=== PATIENT | male | born 1990 | race Caucasian/White ===

== ENCOUNTER 2017-11-28 13:42 | Emergency (ER) | payer SELFPAY ==
[2017-11-28 13:47] VITALS: BP 132/76
--- NOTE | 2017-11-28 14:43 | ER Document Report ---
ED General - General Chief Complaint: Chest Pain Stated Complaint: CHEST PAIN, LEFT ARM PAIN Time Seen by Provider: 11/28/17 14:25 Mode of Arrival: Ambulatory Information source: Patient Notes: 27-year-old male presents with 2 separate complaints. Patient notes for the past 10 days he has been having epigastric midsternal cramping burning sensation. Patient admits to history of gastric reflux, notes he eats Tums often, patient also admits to pain in the left shoulder with range of motion. Patient denies any family history of any cardiac concerns notes he was concerned about his heart to the 2 symptoms, patient notes that he is active and does not have chest pain when he is active TRAVEL OUTSIDE OF THE [place] IN LAST 30 DAYS: No - HPI Onset: Last week Onset/Duration: Intermittent Quality of pain: Burning, Cramping Severity: Mild Pain Level: 1 Associated symptoms: Body/muscle aches, Other Exacerbated by: Movement Relieved by: Denies Similar symptoms previously: No Recently seen / treated by doctor: No Past Medical History - Social History Smoking Status: Former Smoker Cigarette use (# per day): No Chew tobacco use (# tins/day): No Smoking Education Provided: No Frequency of alcohol use: Occasional Drug Abuse: Marijuana Family History: Reviewed & Not Pertinent Patient has suicidal ideation: No Patient has homicidal ideation: No Pulmonary Medical History: Reports: Hx Asthma Renal/ Medical History: Denies: Hx Peritoneal Dialysis Review of Systems - Review of Systems Notes: REVIEW OF SYSTEMS: CONSTITUTIONAL : Denies fever, chills, or sweats. Denies recent illness. EENT: Denies eye, ear, throat, or mouth pain or symptoms. Denies nasal or sinus congestion or discharge. Denies throat, tongue, or mouth swelling or difficulty swallowing. CARDIOVASCULAR: Denies chest pain. Denies palpitations or racing or irregular heart beat. Denies ankle edema. RESPIRATORY: Denies cough, cold, or chest congestion. Denies shortness of breath, difficulty breathing, or wheezing. GASTROINTESTINAL: admits to gastric reflux GENITOURINARY: Denies difficulty urinating, painful urination, burning, frequency, blood in urine, or discharge. MUSCULOSKELETAL: admits ot left shoulder pain SKIN: Denies rash, lesions or sores. HEMATOLOGIC : Denies easy bruising or bleeding. LYMPHATIC: Denies swollen, enlarged glands. NEUROLOGICAL: Denies confusion or altered mental status. Denies passing out or loss of consciousness. Denies dizziness or lightheadedness. Denies headache. Denies weakness or paralysis or loss of use of either side. Denies problems with gait or speech. Denies sensory loss, numbness, or tingling. Denies seizures. PSYCHIATRIC: Denies anxiety or stress. Denies depression, suicidal ideation, or homicidal ideation. ALL OTHER SYSTEMS REVIEWED AND NEGATIVE. Dictation was performed using [employer] voice recognition software PHYSICAL EXAMINATION: GENERAL: Well-appearing, well-nourished and in no acute distress. HEAD: Atraumatic, normocephalic. EYES: Pupils equal round and reactive to light, extraocular movements intact, sclera anicteric, conjunctiva are normal. ENT: Nares patent, oropharynx clear without exudates. Moist mucous membranes. NECK: Normal range of motion, supple without lymphadenopathy LUNGS: Breath sounds clear to auscultation bilaterally and equal. No wheezes rales or rhonchi. HEART: Regular rate and rhythm without murmurs ABDOMEN: Soft, nontender, nondistended abdomen. No guarding, no rebound. No masses appreciated. Musculoskeletal: Normal range of motion, no pitting or edema. No cyanosis. pain with rom of the left shoulder pin point NEUROLOGICAL: Cranial nerves grossly intact. Normal speech, normal gait. Normal sensory, motor exams PSYCH: Normal mood, normal affect. SKIN: Warm, Dry, normal turgor, no rashes or lesions noted. Physical Exam - Vital signs Vitals: Temp Pulse Resp BP Pulse Ox 98.0 F 72 15 132/76 H 97 11/28/17 13:46 11/28/17 13:46 11/28/17 13:46 11/28/17 13:46 11/28/17 13:46 Course - Re-evaluation Re-evalutation: 11/28/17 14:42 Patient's presentation is most consistent with gastric reflux, patient will be treated with Pepcid and is otherwise well-appearing, his pain with range of motion is most consistent with musculoskeletal injury, he has no signs of cardiac concerns he is a young healthy 27-year-old with no family history of cardiac issues no past medical history himself, EKG - Vital Signs Vital signs: Temp Pulse Resp BP Pulse Ox 98.0 F 72 16 132/76 H 97 11/28/17 13:46 11/28/17 13:46 11/28/17 14:23 11/28/17 13:46 11/28/17 13:46 - EKG Interpretation by Me EKG shows normal: Sinus rhythm, [place], Intervals, QRS Complexes Voltage: Consistant with [facility] Discharge - Discharge Clinical Impression: GERD (gastroesophageal reflux disease) Qualifiers: Esophagitis presence: with esophagitis Qualified Code(s): K21.0 - Gastro- esophageal reflux disease with esophagitis Left shoulder pain Qualifiers: Chronicity: acute Qualified Code(s): M25.512 - Pain in left shoulder Condition: Stable Disposition: HOME, SELF-CARE Instructions: Chest Pain of Unclear Cause ([facility]), Reflux Disease (GERD) ([facility]) Prescriptions: Famotidine [Pepcid 40 mg Tablet] 40 mg PO DAILY #30 tablet Referrals: REINALDO ANDREWS MD [ACTIVE STAFF] - Follow up tomorrow
--- NOTE | 2017-11-28 18:58 | EKG REPORT ---
SEVERITY:- ABNORMAL ECG - SINUS RHYTHM SHORT VA INTERVAL, ACCELERATED AV CONDUCTION NONSPECIFIC INTRAVENTRICULAR CONDUCTION DELAY PROBABLE LEFT VENTRICULAR HYPERTROPHY : Confirmed by: Chip Reyes MD 28-Nov-2017 18:57:47
== END 2017-11-28 15:26 | disposition home or self-care (01) ==
LOC: ER 13:42
DX: K21.0 Gastro-esophageal reflux disease with esophagitis (principal); M25.512 Pain in left shoulder; J45.909 Unspecified asthma, uncomplicated; Z87.891 Personal history of nicotine dependence
CPT/HCPCS: 93005; 93010; 99285